=== PATIENT | female | born 2000 | race Caucasian/White ===

== ENCOUNTER 2025-09-29 00:31 | Emergency (ER) | payer BC, OTHER ==
[2025-09-29] MEDS ORDERED: Sodium Chloride 0.9% 10 ML Syringe FLUSH PRN (00:41)
[2025-09-29 01:03] LABS: BASOPHILS PERCENT AUTO 0.1 % (0.0-1.0); EOSINOPHILS PERCENT AUTO 0.6 % (1.0-3.0); LYMPHOCYTES PERCENT AUTO 20.6 % (20.5-50.1); MONOCYTES PERCENT AUTO 6.8 % (2-8); NEUTROPHILS PERCENT AUTO 71.9 % (42.2-75.2); PLATELET COUNT,PLT 236 10^3/uL (150-450); RED BLOOD CELL COUNT 4.91 10^6/uL (4.2-5.4); WHITE BLOOD CELL COUNT,WBC 9.3 10^3/uL (5.0-10.0)
[2025-09-29 01:28] LABS: A/G RATIO 1.1; ALANINE AMINOTRANSFERASE,ALT 408 U/L (14-59); ASPARTATE AMNIOTRANSFERASE,AST 473 U/L (15-37); BILIRUBIN TOTAL 1.2 mg/dL (0.2-1.0); BLOOD UREA NITROGEN,BUN 8 mg/dL (7-18); CARBON DIOXIDE,CO2 27 mmol/L (21-32); CHLORIDE,CL 101 mmol/L (98-107); CREATININE 0.99 mg/dL (0.55-1.02); EST CRCL DRUG DOSING (CG) 80.61 mL/min; GLUCOSE RANDOM 132 mg/dL (70-99); INR 1.0 (0.9-1.2); POTASSIUM,K 3.4 mmol/L (3.5-5.1); PROTEIN TOTAL,TP 7.8 g/dL (6.4-8.2); PTT,PARTIAL THROMBOPLSTIN TIME 25.6 SEC (22.0-34.0); SODIUM,NA 138 mmol/L (136-145)
[2025-09-29 01:30] LABS: ESTIMATED GFR 81 mL/min (>=60)
[2025-09-29 02:01] LABS: LACTIC ACID 2.1 mmol/L (0.4-2.0)
[2025-09-29 02:09] LABS: APPEARANCE,URINE TURBID (CLEAR); GLUCOSE,URINE NEGATIVE (NEGATIVE); OCCULT BLOOD,URINE SMALL (NEGATIVE)
[2025-09-29] MEDS: Iopamidol 612 MG/ML 100 ML Bottle IVPUSH ONE (02:11)
[2025-09-29 02:18] LABS: EPITHELIAL CELLS,URINE MODERATE /HPF (NOT SEEN)
[2025-09-29] MEDS: Ondansetron 4 MG/2 ML SDV IVPUSH ONE (03:39)
== END 2025-09-29 04:03 ==
LOC: DL.ED 00:31
DX: K81.9 Cholecystitis, unspecified (principal)
CPT/HCPCS: 36415; 71045; 74177; 80053; 81001; 81025; 83605; 83690; 84484; 85025; 85610; 85730; 86140; 93005; 96374; 96375; 99285; J1171; J2405; Q9967